=== PATIENT | male | born 2000 | race Caucasian/White ===

== ENCOUNTER 2020-08-17 03:31 | Emergency (ER) | payer MEDICAID, OTHER ==
[~2020-08-17] VITALS: Ht 182.9 cm; Wt 140.0 kg
[2020-08-17 03:40] VITALS: BP 160/96
[2020-08-17] MEDS ORDERED: AMOX500T PO (03:50)
--- NOTE | 2020-08-17 03:51 | PHYS DOC ---
Past History Past Medical History: Asthma Past Surgical History: Tonsillectomy Smoking: Non-smoker Alcohol Use: None Drug Use: None Adult General Chief Complaint Chief Complaint: EARACHE/EAR PAIN HPI HPI Patient is a 19-year-old male who presents with left ear pain for the last 2 days. States he does have a history when he was younger of multiple ear infections and states this feels similar. Denies headache, fevers, pain or trouble swallowing, sore throat/flu/Covid symptoms, chest pain, shortness of breath, abdominal pain, nausea, vomiting. Review of Systems Review of Systems Review of systems otherwise unremarkable except noted in HPI Allergies Allergies Allergies Coded Allergies Type Severity Reaction Last Updated Verified No Known Drug Allergies 08/17/20 No Physical Exam Physical Exam Constitutional: Well developed, well nourished, no acute distress, non-toxic appearance. [] HENT: Normocephalic, atraumatic, bilateral external ears normal, left tympanic membrane red and bulging with appearance of some serous fluid behind the membrane, no signs of otitis externa, oropharynx moist, no oral exudates, nose normal. [] Eyes: conjunctiva normal, no discharge. [] Neck: Normal range of motion, no tenderness, no lymphadenopathy Cardiovascular:Heart rate regular rhythm, no murmur [] Lungs & Thorax: No respiratory distress Neurologic: Alert and oriented X 3, normal motor function, normal sensory function, no focal deficits noted. [] Psychologic: Affect normal, judgement normal, mood normal. [] EKG EKG [] Radiology/Procedures Radiology/Procedures [] Heart Score C/O Chest Pain: No Risk Factors: Risk Factors: DM, Current or recent (<one month) smoker, HTN, HLP, family history of CAD, obesity. Risk Scores: Risk Factors: DM, Current or recent (<one month) smoker, HTN, HLP, family history of CAD, obesity. Course & Med Decision Making Course & Med Decision Making Patient is a 19-year-old male who presents with a couple days of left ear pain Vital signs not concerning. Physical exam noted above. Patient started on amoxicillin for left-sided otitis media. Discussed all findings with family and advised on pain management at home. Advised to take antibiotics as prescribed. Advised to call primary care physician on Tuesday to update on ED visit and set up a follow-up visit for reevaluation. Gave return precautions to the ED. Family grateful, verbalized understanding and agreed with plan of discharge. [] Dragon Disclaimer Dragon Disclaimer This electronic medical record was generated, in whole or in part, using a voice recognition dictation system. Departure Departure: Impression: Primary Impression: Otitis media Disposition: HOME / SELF CARE / HOMELESS Condition: GOOD Referrals: PCP,NO (PCP) CRAIG MOYER MD Patient Instructions: Otitis Media, Adult Additional Instructions: Please read all the attached information very carefully on your diagnosis. Please take your antibiotics as prescribed and until they are gone. You can use Tylenol, ibuprofen, Benadryl and ice packs for pain control at home as discussed. Please follow-up with your primary care physician first thing Tuesday morning to update on ED visit and set up a follow-up visit as soon as you can for reevaluation. Please come back to the emergency department with new or concerning symptoms as discussed. Scripts Amoxicillin (AMOXICILLIN) 500 Mg Tablet 2 TAB PO BID for otitis media for 10 Days, #38 TAB Prov: MAMADOU MIMS MD 08/17/20 MAMADOU MISM MD Aug 17, 2020 03:50
[2020-08-17] MEDS ORDERED: AMOXICILLIN 250 MG CAPSULE PO ONE (04:00)
== END 2020-08-17 04:09 | disposition home or self-care (01) ==
LOC: ER 03:31
DX: H66.92 Otitis media, unspecified, left ear (principal); J45.909 Unspecified asthma, uncomplicated
CPT/HCPCS: 99283

== ENCOUNTER 2020-09-01 09:05 | Emergency (ER) | payer MEDICAID ==
[~2020-09-01] VITALS: Ht 182.9 cm; Wt 198.0 kg
[~2020-09-01 09:05] MED LIST: AMOX500T PO
[2020-09-01] MEDS ORDERED: IV NORMAL SALINE 1,000ML 1,000 ML IV SCH (10:30)
[2020-09-01] MEDS ORDERED: IOHEXOL 300 MG/ML 75 ML VIAL. IV ONE (10:30)
[2020-09-01 10:43] LABS: BASO # 0.1 x10^3/uL (0.0-0.2); BASO % 1 % (0-3); EOS # 0.1 x10^3/uL (0.0-0.7); EOS % 1 % (0-3); HEMATOCRIT 40.4 % (39.0-53.0); HEMOGLOBIN 13.7 g/dL (13.0-17.5); LYMPH # 1.9 x10^3/uL (1.0-4.8); LYMPH % 18 % (24-48); MEAN CORPUSCULAR HEMOGLOBIN 29 pg (25-35); MEAN CORPUSCULAR HGB CONC 34 g/dL (31-37); MEAN CORPUSCULAR VOLUME 85 fL (79-100); MONO # 0.6 x10^3/uL (0.0-1.1); MONO % 6 % (0-9); NEUT # 7.9 x10^3uL (1.8-7.7); NEUT % 75 % (31-73); PLATELET COUNT 297 x10^3/uL (140-400); RED BLOOD COUNT 4.76 x10^6/uL (4.30-5.70); RED CELL DISTRIBUTION WIDTH 14.1 % (11.5-14.5); WHITE BLOOD COUNT 10.6 x10^3/uL (4.0-11.0)
[2020-09-01] MEDS ORDERED: ONDANSETRON PF 4 MG/2 ML VIAL. IVP ONE (10:45)
[2020-09-01 11:10] LABS: CALCIUM 9.1 mg/dL (8.5-10.1); CREATININE 1.3 mg/dL (0.7-1.3); GFR 71.1; POTASSIUM 3.6 mmol/L (3.5-5.1)
[2020-09-01 11:14] LABS: ALBUMIN 3.6 g/dL (3.4-5.0); ALBUMIN/GLOBULIN RATIO 0.8 (1.0-1.7); TOTAL BILIRUBIN 0.7 mg/dL (0.2-1.0); TOTAL PROTEIN 8.4 g/dL (6.4-8.2)
--- NOTE | 2020-09-01 12:04 | RAD ---
INDICATION: Reason: abd pain around umbilicus / Spl. Instructions: / History: . COMPARISON: None. TECHNIQUE: Axial CT images obtained through the abdomen and pelvis with contrast. One or more of the following individualized dose reduction techniques were utilized for this examinat ion: 1. Automated exposure control; 2. Adjustment of the mA and/or kV according to patient size; 3 . Use of iterative reconstruction technique. FINDINGS: There are some small nodules at the right lung base. Most commonly benign in a patient of this age. Abdominal aorta is not aneurysmal. Liver is low density. Nonspecific but can be seen with fatty infiltration. No peripancreatic fluid collection. Spleen unremarkable. No hydronephrosis. Urinary bladder is partially distended. Colonic diverticulosis. No periappendiceal inflammatory changes. There is some degenerative changes the spine. IMPRESSION: * No evidence of bowel obstruction or appendicitis. * No hydronephrosis. * Liver is low density which can be seen with fatty infiltration. Electronically signed by: Darion Tavares MD (09/01/2020 12:01 PM) [id number]
--- NOTE | 2020-09-01 12:16 | PHYS DOC ---
Past History Past Medical History: Asthma, Bipolar Past Surgical History: Tonsillectomy Smoking: Non-smoker Alcohol Use: Occasionally Drug Use: None General Adult EDM: Chief Complaint: ABDOMINAL PAIN HPI: HPI: 19-year-old male past medical history of bipolar disorder (noncompliant with medications) presents to the ED with his mother (patient consents to his/her/their knowledge and involvement in pts' medical care), complains of abdominal pain that woke patient up around 6 AM with associated nausea, nonbloody nonbilious vomiting. Patient states abdominal pain is localized around his bellybutton that radiates up his stomach. Described as sharp in nature. Has not eaten anything today. Denies any recent alcohol or drug use. Reports no prior history of similar symptoms. Mother states patient's bipolar disorder has been well controlled, is not on any medications. Patient cannot recall any greasy foods or poorly prepared foods. No known sick contacts. Review of Systems: Review of Systems: Constitutional: Denies fever or chills Eyes: Denies change in visual acuity HENT: Denies nasal congestion or sore throat Respiratory: Denies cough or shortness of breath Cardiovascular: Denies chest pain or edema GI: Denies constipation, melena, hematochezia or diarrhea : Denies dysuria or hematuria or urethral discharge Musculoskeletal: Denies back pain or joint pain Integument: Denies rash or diaphoresis Neurologic: Denies headache, focal weakness or sensory changes Endocrine: Denies polyuria or polydipsia Lymphatic: Denies swollen glands Psychiatric: Denies depression or anxiety Current Medications: Current Meds: Current Medications Medications (Trade) Dose Ordered Sig/Elvia Start Time Stop Time Status Last Admin Dose Admin Iohexol (Omnipaque 300 Mg/ml) 75 ml 1X ONCE 09/01/20 10:30 09/01/20 10:31 DC 09/01/20 11:26 75 ML Ondansetron HCl (Zofran) 4 mg 1X ONCE 09/01/20 10:45 09/01/20 10:51 DC 09/01/20 10:45 4 MG Sodium Chloride 1,000 ml @ 1,000 mls/hr Q1H 09/01/20 10:30 09/01/20 11:29 DC 09/01/20 10:40 1,000 MLS/HR Allergies: Allergies: Allergies Coded Allergies Type Severity Reaction Last Updated Verified No Known Drug Allergies 08/17/20 No Physical Exam: PE: Constitutional: Well developed, well nourished, no acute distress, non-toxic appearance. HENT: Normocephalic, atraumatic, Eyes: EOMI, conjunctiva normal, no discharge. Neck: Normal range of motion, supple, Cardiovascular: S1/2 present, regular rhythm Lungs & Thorax: Speaking in full sentences, bilateral equal chest rise, no tachypnea or increased work of breathing Abdomen: soft, mild epigastric tenderness, no Cowart sign, no McBurney's point tenderness, no rigidity or guarding, patient lies down/sits upright and gets out of stretcher with no significant distress, obese abdomen with abdominal striae, no palpable or visualized hernias Skin: Warm, dry, no erythema, no rash. [] Back: No tenderness, no CVA tenderness. [] Extremities: No tenderness, no cyanosis, Neurologic: Alert and oriented X 3, normal motor function, normal sensory function, no focal deficits noted. [] Psychologic: Normal judgment, flat affect, calm mood but slightly anxious regarding what is causing his abdominal pain Current Patient Data: Labs: Laboratory Tests Test 09/01/20 10:29 White Blood Count 10.6 x10^3/uL (4.0-11.0) Red Blood Count 4.76 x10^6/uL (4.30-5.70) Hemoglobin 13.7 g/dL (13.0-17.5) Hematocrit 40.4 % (39.0-53.0) Mean Corpuscular Volume 85 fL (79-100) Mean Corpuscular Hemoglobin 29 pg (25-35) Mean Corpuscular Hemoglobin Concent 34 g/dL (31-37) Red Cell Distribution Width 14.1 % (11.5-14.5) Platelet Count 297 x10^3/uL (140-400) Neutrophils (%) (Auto) 75 % (31-73) H Lymphocytes (%) (Auto) 18 % (24-48) L Monocytes (%) (Auto) 6 % (0-9) Eosinophils (%) (Auto) 1 % (0-3) Basophils (%) (Auto) 1 % (0-3) Neutrophils # (Auto) 7.9 x10^3uL (1.8-7.7) H Lymphocytes # (Auto) 1.9 x10^3/uL (1.0-4.8) Monocytes # (Auto) 0.6 x10^3/uL (0.0-1.1) Eosinophils # (Auto) 0.1 x10^3/uL (0.0-0.7) Basophils # (Auto) 0.1 x10^3/uL (0.0-0.2) Sodium Level 141 mmol/L (136-145) Potassium Level 3.6 mmol/L (3.5-5.1) Chloride Level 101 mmol/L (98-107) Carbon Dioxide Level 32 mmol/L (21-32) Anion Gap 8 (6-14) Blood Urea Nitrogen 17 mg/dL (8-26) Creatinine 1.3 mg/dL (0.7-1.3) Estimated GFR (Cockcroft-Gault) 71.1 BUN/Creatinine Ratio 13 (6-20) Glucose Level 116 mg/dL (70-99) H Calcium Level 9.1 mg/dL (8.5-10.1) Magnesium Level 2.2 mg/dL (1.8-2.4) Total Bilirubin 0.7 mg/dL (0.2-1.0) Aspartate Amino Transferase (AST) 20 U/L (15-37) Alanine Aminotransferase (ALT) 40 U/L (16-63) Alkaline Phosphatase 82 U/L (46-116) Lactate Dehydrogenase 186 U/L (85-227) Total Protein 8.4 g/dL (6.4-8.2) H Albumin 3.6 g/dL (3.4-5.0) Albumin/Globulin Ratio 0.8 (1.0-1.7) L Lipase 54 U/L (73-393) L Ethyl Alcohol Level < 10 mg/dL (0-10) Vital Signs: Vital Signs Date Time Temp Pulse Resp B/P (MAP) Pulse Ox O2 Delivery O2 Flow Rate FiO2 09/01/20 09:41 97.5 90 16 154/85 (108) 95 Room Air EKG: EKG: [] Radiology/Procedures: Radiology/Procedures: IMAGING REPORT Signed PATIENT: KILO BLAND ACCOUNT: [id number] : 2000 LOCATION: ER AGE: 19 SEX: M EXAM STATUS: REG ER ORD. PHYSICIAN: GRACIE MARIA DO REASON: abd pain around umbilicus PROCEDURE: CT ABD PELV W/ IV CONTRST ONLY INDICATION: Reason: abd pain around umbilicus / Spl. Instructions: / History: . COMPARISON: None. TECHNIQUE: Axial CT images obtained through the abdomen and pelvis with contrast. One or more of the following individualized dose reduction techniques were utilized for this examination: 1. Automated exposure control; 2. Adjustment of the mA and/or kV according to patient size; 3. Use of iterative reconstruction technique. FINDINGS: There are some small nodules at the right lung base. Most commonly benign in a patient of this age. Abdominal aorta is not aneurysmal. Liver is low density. Nonspecific but can be seen with fatty infiltration. No peripancreatic fluid collection. Spleen unremarkable. No hydronephrosis. Urinary bladder is partially distended. Colonic diverticulosis. No periappendiceal inflammatory changes. There is some degenerative changes the spine. IMPRESSION: * No evidence of bowel obstruction or appendicitis. * No hydronephrosis. * Liver is low density which can be seen with fatty infiltration. Electronically signed by: Jameel John MD (09/01/2020 12:01 PM) [id number] DICTATED AND SIGNED BY: JAMEEL JOHN MD DATE: 09/01/20 1152 CC: PCP,CUATE; GRACIE MARIA DO ~MTH0 0 Heart Score: C/O Chest Pain: No Risk Factors: Risk Factors: DM, Current or recent (<one month) smoker, HTN, HLP, family history of CAD, obesity. Risk Scores: Score 0 - 3: 2.5% MACE over next 6 weeks - Discharge Home Score 4 - 6: 20.3% MACE over next 6 weeks - Admit for Clinical Observation Score 7 - 10: 72.7% MACE over next 6 weeks - Early Invasive Strategies Course & Med Decision Making: Course & Med Decision Making Pertinent Labs and Imaging studies reviewed. (See chart for details) Concern for periumbilical and epigastric abdominal pain, very mild, patient in no distress. Patient afebrile with no leukocytosis. CT with normal-appearing appendix. Nausea and vomiting well controlled with medications in the ED. Will treat for gastritis. Patient with no lower abdominal pain, no gu pain. On reevaluation patient's pain and nausea is well controlled. Patient and mother both relieved to hear CT findings-stress/anxiety resolved upon hearing this. Will discharge home with strict ED return precautions were given for severe pain, dehydration, intractable nausea or vomiting, neurologic deficits or syncope. Encouraged urgent outpatient follow-up with PMD and GI. Life- threatening processes were considered but are low suspicion at this time, given history, physical exam and ED workup. Pt was educated on all prescription medications and adverse effects. All patient's questions were answered and pt was stable at time of discharge. Life/limb-threatening differential includes but is not limited to, aortic dissection, aortic aneurysm, acute coronary syndrome, surgical abdomen (appendicitis, cholecystitis, ischemic bowel, strangulated hernia, etc), bowel obstruction or volvulus, bladder outlet obstruction, gastrointestinal bleeding, inflammatory bowel disease, peptic ulcer disease, ACS/CAD, sepsis, diverticular disease, ureterolithiasis, nephrolithiasis, testicular torsion, or genitourinary infection. I spoken with the patient and her caregivers. I explained the patient's condition, diagnoses and treatment plan based on the information available to me at this time. I have answered the patient and her caregiver's questions and addressed any concerns. The patient and her caregivers have a good understanding of patient's diagnosis, condition and treatment plan as can be expected at this point. Vital signs have been stable. Patient's condition is stable and appropriate for discharge from the emergency department. Patient will pursue further outpatient evaluation with primary care physician or other designated or consulting physician as outlined in the discharge instructions. The patient and/or caregivers are agreeable to this plan of care and follow-up instructions have been explained in detail. The patient and/or caregivers have received these instructions in written form and have expressed an understanding of the discharge instructions. The patient and/or caregivers are aware that any significant change of condition or worsening of symptoms should prompt immediate return to this or the closest emergency department or call to 911. Dominique Disclaimer: Dominique Disclaimer: This electronic medical record was generated, in whole or in part, using a voice recognition dictation system. Departure Departure: Impression: Primary Impression: Upper abdominal pain Disposition: HOME / SELF CARE / HOMELESS Condition: STABLE Referrals: PCPCUATE (PCP) Patient Instructions: Abdominal Pain, Gastritis, Adult Additional Instructions: FOLLOW UP WITH GASTROENTEROLOGY: for definitive management [facility] [place] [address], [address] [place] [address] OR [facility] [address], [address], Gastroenterology [facility] [place] [address] EMERGENCY DEPARTMENT GENERAL DISCHARGE INSTRUCTIONS Thank you for coming to [facility] (ED) today and trusting us with you care. We trust that you had a positivie experience in our Emergency Department. If you wish to speak to the department management, you may call the director at [phone]. YOUR FOLLOW UP INSTRUCTIONS ARE FOLLOWS: 1. Do you have a private Doctor? If you do not have a private doctor, please ask for a resource list of physicians or clinics that may be able to assist you with follow up care. 2. The Emergency Physician has interpreted your x-rays. The X-Ray specialist will also review them. If there is a change in the findings, you will be notified in 48 hours when at all possible. 3. A lab test or culture has been done, your results will be reviewed and you will be notified if you need a change in treatment. ADDITIONAL INSTRUCTIONS AND INFORMATION: 1. Your care today has been supervised by a physician who is specially trained in emergency care. Many problems require more than one evaluation for a complete diagnosis and treatment. We recommend that you schedule your follow up appointment as recommended to ensure complete treatment of you illness or injury. If you are unable to obtain follow up care and continue to have a problem, or if your condition worsens, we recommend that you return to the ED. 2. We are not able to safely determine your condition over the phone nor are we able to give sound medical advice over the phone. For these safety reasons, if you call for medical advice we will ask you to come to the ED for further evaluation. 3. If you have any questions regarding these discharge instructions please call the ED at [phone]. SAFETY INFORMATION: In the interest of safety, wellness, and injury prevention; we encourage you to wear your sealbelt, if you smoke; quite smoking, and we encourage family to use a protective helmet for bicycling and other sporting events that present an increased risk for head injury. IF YOUR SYMPTOMS WORSEN OR NEW SYMPTOMS DEVELOP, OR YOU HAVE CONCERNS ABOUT YOUR CONDITION; OR IF YOUR CONDITION WORSENS WHILE YOU ARE WAITING FOR YOUR FOLLOW UP APPOINTMENT; EITHER CONTACT YOUR PRIMARY CARE DOCTOR, THE PHYSICIAN WHOSE NAME AND NUMBER YOU WERE GIVEN, OR RETURN TO THE ED IMMEDIATELY. Scripts Famotidine (PEPCID) 20 Mg Tablet 1 TAB PO BID for abd pain for 14 Days, #28 TAB 0 Refills Prov: GRACIE MARIA DO 09/01/20 GRACIE MARIA DO Sep 01, 2020 12:16
[2020-09-01] MEDS ORDERED: KETOROLAC 30 MG/ML VIAL. ONE (12:25)
[2020-09-01] MEDS ORDERED: KETOROLAC 30 MG/ML VIAL. IM ONE (12:30)
[2020-09-01 14:14] LABS: BILIRUBIN,URINE NEG (NEG); CLARITY,URINE CLEAR; COLOR,URINE YELLOW; GLUCOSE,URINE NEG (NEG)
[2020-09-01 14:15] LABS: NITRITE,URINE NEG (NEG); UROBILINOGEN,URINE 0.2 mg/dL (0.2 mg/dL)
[2020-09-01 14:26] LABS: BARBITURATES NEG (NEG); BENZODIAZEPINES NEG (NEG); CANNABINOIDS NEG (NEG); COCAINE NEG (NEG); METHADONE NEG (NEG); OPIATES NEG (NEG); PHENCYCLIDINE NEG (NEG)
[2020-09-01 14:29] LABS: AMPHETAMINE/METHAMPHETAMINE NEG (NEG); RBC,URINE OCC /HPF (0-2); WBC,URINE RARE /HPF (0-4)
[2020-09-01 14:30] LABS: BACTERIA,URINE 0 /HPF (0-FEW); SQUAMOUS EPITHELIAL CELL,UR OCC /LPF
[2020-09-01] MEDS ORDERED: LIDO:MAALOX 1:1 20 ML SINGLE DOSE. PO ONE (14:45)
[2020-09-01] MEDS ORDERED: FAMO-63 PO (14:46)
[2020-09-01 14:50] VITALS: BP 143/82
== END 2020-09-01 14:55 | disposition home or self-care (01) ==
LOC: ER 09:05
DX: R10.13 Epigastric pain (principal); R11.2 Nausea with vomiting, unspecified; J45.909 Unspecified asthma, uncomplicated; F31.9 Bipolar disorder, unspecified
CPT/HCPCS: 36415; 74177; 80053; 80307; 81001; 83615; 83690; 83735; 85025; 96361; 96372; 96374; 99285; G0480; J1885; J2405; J7030; Q9967

== ENCOUNTER 2021-01-03 06:10 | Emergency (ER) | payer MEDICAID ==
[~2021-01-03] VITALS: Ht 190.5 cm; Wt 198.0 kg
[~2021-01-03 06:10] MED LIST changes: +FAMO-63 PO
[2021-01-03 06:21] VITALS: BP 144/79
[2021-01-03] MEDS ORDERED: IOHEXOL 300 MG/ML 75 ML VIAL. IV ONE (07:15)
[2021-01-03] MEDS ORDERED: CONTRAST GIVEN. MC PRN (07:30)
--- NOTE | 2021-01-03 07:35 | PHYS DOC ---
Past History Past Medical History: Asthma, Bipolar Additional Past Medical Histor: BIPOLAR Past Surgical History: Tonsillectomy Smoking: Non-smoker Alcohol Use: Occasionally Drug Use: None General Adult EDM: Chief Complaint: OTHER COMPLAINTS HPI: HPI: Patient is a 20-year-old male coming in for sensation of something stuck in his throat. Patient states it is painful and is at the anterior base of his neck. Patient states he last ate [employer] burger about 6 hours prior to arrival, started having the pain 3 hours later. No other complaints no difficulty swallowing other than pain. Patient states it feels scratchy Review of Systems: Review of Systems: All other systems within normal limits except for as noted in the HPI Current Medications: Current Meds: Current Medications Medications (Trade) Dose Ordered Sig/Elvia Start Time Stop Time Status Last Admin Dose Admin Info (Do NOT chart on this entry -- for MONITORING) 1 each PRN DAILY PRN 01/03/21 07:30 01/05/21 07:29 Iohexol (Omnipaque 300 Mg/ml) 75 ml 1X ONCE 01/03/21 07:15 01/03/21 07:19 DC Allergies: Allergies: Allergies Coded Allergies Type Severity Reaction Last Updated Verified No Known Drug Allergies 08/17/20 No Physical Exam: PE: Constitutional: Well developed, well nourished, no acute distress, non-toxic appearance, morbidly obese. [] HENT: Normocephalic, atraumatic, bilateral external ears normal, nose normal. Normal posterior pharynx, no erythema, exudates, or foreign body [] Eyes: PERRLA, conjunctiva normal, no discharge. [] Neck: No rigidity, supple, no stridor. [] Cardiovascular: Regular rate and rhythm, brisk cap refill [] Lungs & Thorax: Non labored symmetric respirations, no tachypnea or respiratory distress [] Abdomen: Soft, nondistended. Skin: Warm, dry, no erythema, no rash. [] Back: Unremarkable Extremities: No deformities, range of motion grossly intact, no lower extremity edema [] Neurologic: Alert and oriented X 3, no focal deficits noted. [] Psychologic: Affect normal, judgement normal, mood normal. [] Current Patient Data: Vital Signs: Vital Signs Date Time Temp Pulse Resp B/P (MAP) Pulse Ox O2 Delivery O2 Flow Rate FiO2 01/03/21 06:21 97.9 109 20 144/79 (100) 98 Room Air EKG: EKG: [] Radiology/Procedures: Radiology/Procedures: [address] [address] IMAGING REPORT Signed PATIENT: KILO BLAND ACCOUNT: [id number] : 2000 LOCATION: ER AGE: 20 SEX: M EXAM STATUS: REG ER ORD. PHYSICIAN: ELMIRA JONES MD REASON: foreign body, concern for food bolus PROCEDURE: CT SOFT TISSUE NECK WO CONTRST EXAM: CT scan of the neck without intravenous contrast. DATE: 01/03/2021 7:14 AM INDICATION: foreign body, concern for food bolus COMPARISON: None. TECHNIQUE: Axial computed tomography images of the neck without intravenous contrast according to the standard neck protocol. Multiplanar reformats were performed. One or more of the following dose reduction techniques were utilized: Automated exposure control (AEC), Adjustment of mA and/or kV according to patient size, Use of iterative reconstruction technique such as ASiR, CT scan done according to ALARA and image gently/image wisely FINDINGS: Motion artifact degrades image quality. No cervical mass or lymphadenopathy. Prominent adenoids, likely reactive. The p arotid, submandibular, and thyroid glands are normal. The unenhanced vessels of the neck are normal. The visualized aerodigestive tract is normal. The visualized posterior fossa and brain is normal. The visualized orbits and paranasal sinuses are normal. The cervical spine is normal. The visualized lung apices are clear. IMPRESSION: Allowing for motion artifact, no foreign body is identified. Electronically signed by: Montserrat Lyn MD (01/03/2021 7:51 AM) [facility] DICTATED AND SIGNED BY: MONTSERRAT LYN MD DATE: 01/03/21 0746 CC: ELMIRA JONES MD; PCP,NO ~MTH0 0 [] Heart Score: C/O Chest Pain: No Risk Factors: Risk Factors: DM, Current or recent (<one month) smoker, HTN, HLP, family history of CAD, obesity. Risk Scores: Score 0 - 3: 2.5% MACE over next 6 weeks - Discharge Home Score 4 - 6: 20.3% MACE over next 6 weeks - Admit for Clinical Observation Score 7 - 10: 72.7% MACE over next 6 weeks - Early Invasive Strategies Course & Med Decision Making: Course & Med Decision Making Pertinent Labs and Imaging studies reviewed. (See chart for details) [] Dragon Disclaimer: Dragon Disclaimer: This electronic medical record was generated, in whole or in part, using a voice recognition dictation system. Departure Departure: Impression: Primary Impression: Throat discomfort Disposition: HOME / SELF CARE / HOMELESS Condition: STABLE Referrals: PCP,NO (PCP) Patient Instructions: Sore Throat ELMIRA JONES MD Jan 03, 2021 07:35
--- NOTE | 2021-01-03 07:53 | RAD ---
EXAM: CT scan of the neck without intravenous contrast. DATE: 01/03/2021 7:14 AM INDICATION: foreign body, concern for food bolus COMPARISON: None. TECHNIQUE: Axial computed tomography images of the neck without intravenous contrast according to [facility] standard neck protocol. Multiplanar reformats were performed. One or more of the following dose re duction techniques were utilized: Automated exposure control (AEC), Adjustment of mA and/or kV accord ing to patient size, Use of iterative reconstruction technique such as ASiR, CT scan done according t o ALARA and image gently/image wisely FINDINGS: Motion artifact degrades image quality. No cervical mass or lymphadenopathy. Prominent adenoids, likely reactive. The parotid, submandibular, and thyroid glands are normal. The unenhanced vessels of the neck are normal. The visualized aerodig estive tract is normal. The visualized posterior fossa and brain is normal. The visualized orbits and paranasal sinuses are n ormal. The cervical spine is normal. The visualized lung apices are clear. IMPRESSION: Allowing for motion artifact, no foreign body is identified. Electronically signed by: Miguel Lyn MD (01/03/2021 7:51 AM) [facility]
== END 2021-01-03 08:17 | disposition home or self-care (01) ==
LOC: ER 06:10
DX: R09.89 Other specified symptoms and signs involving the circulatory and respiratory systems (principal); J45.909 Unspecified asthma, uncomplicated
CPT/HCPCS: 70490; 99284-25